=== PATIENT | male | born 2005 | race Caucasian/White ===

== ENCOUNTER 2024-09-25 22:06 | Emergency (ER) | payer OTHER, SELFPAY ==
[2024-09-25] MEDS ORDERED: Boostrix 0.5 ML (Tdap) VIAL (>/=7 yrs of age) ONE (22:14)
[2024-09-25] MEDS ORDERED: Lidocaine 1% w/Epinephrine 1:100K 20 ML VIAL ONE (22:20)
[2024-09-25] MEDS ORDERED: Lidocaine 1% (PF) 30 ML VIAL ONE (22:22)
[2024-09-25] MEDS ORDERED: Bacitracin 1 PK ONE ×2 (22:35→22:57)
== END 2024-09-25 23:05 | disposition home or self-care (01) ==
LOC: MADERS 22:06
DX: S61.211A Laceration without foreign body of left index finger without damage to nail, initial encounter (principal); Z23 Encounter for immunization; W26.0XXA Contact with knife, initial encounter
CPT/HCPCS: 12042; 90471; 90715